=== PATIENT | female | born 2000 | race Caucasian/White ===

== ENCOUNTER 2023-01-04 21:07 | Emergency (ER) | payer OTHER ==
[~2023-01-04] VITALS: Ht 167.6 cm; Wt 54.4 kg
[2023-01-04 21:29] VITALS: BP 114/84
[2023-01-04] MEDS ORDERED: GABA300 PO (21:32)
[2023-01-04 22:04] LABS: Source, Urine Clean Catch
[2023-01-04 22:10] LABS: Bilirubin, Urine Neg (Neg); Blood, Urine 2+ (Neg); Glucose Qualitative, Urine Neg (Neg); Ketones, Urine Neg (Neg); Leukocyte Esterase, Urine 3+ (Neg); Nitrite, Urine Neg (Neg); Protein, Urine Neg (Neg); Urobilinogen, Urine NORM (Normal)
[2023-01-04 22:13] LABS: Appearance, Urine Clear (Clear)
[2023-01-04 22:21] LABS: Color, Urine Pale Yellow (P-Yellow)
[2023-01-04 22:22] LABS: Bacteria Few /hpf; Red Blood Cells, Urine 0-2 /hpf (0-2); Squamous Epithelial Cells Rare /hpf (Few)
[2023-01-04 22:23] LABS: Amorphous Light (0-Heavy)
[2023-01-04] MEDS ORDERED: NITR100CA PO (22:52)
[2023-01-04] MEDS ORDERED: PYRIDIUM200 MG PO (22:52)
== END 2023-01-04 22:59 | disposition home or self-care (01) ==
LOC: ER 21:07
PROVIDERS: Student in an Organized Health Care Education/Training Program
DX: N39.0 Urinary tract infection, site not specified (principal)
CPT/HCPCS: 81001; 81025; 87077; 87086; 87186; 99283; A9270